=== PATIENT | male | born 1955 | race Caucasian/White ===

== ENCOUNTER 2017-08-25 12:05 | Inpatient (IN) | payer OTHER ==
[~2017-08-25] VITALS: Ht 190.5 cm; Wt 163.3 kg
[~2017-08-25 12:05] MED LIST: ASPIRIN EC81 MG PO; BETIMOL5 M1 OS; COSOPT EYE DROPS5 ML OD; CRESTOR10 MG PO; DICLOFENAC SODI75 MG PO; FAMOTIDINE20 MG PO; FLOMAX0.4 MG PO; IBUPROFEN600 MG PO; LEVAQUIN500 MG PO; LIPITOR10 MG PO; LISINOPRIL-HCT1 EAC2 PO; METFORMIN HCL500 MG PO; METOPROLOL TART25 MG PO; MOBIC7.5 MG PO; NITROGLYCERIN0.4 MG SL; NORCO 10-325 T1 EACH PO; NORCO 7.5-3251 EACH PO; PERCOCET 10-321 EACH PO; PERCOCET 5-3251 EACH PO; PLAVIX75 MG PO; ULTRAM50 MG PO; XANAX0.5 MG PO
--- NOTE | 2017-09-07 13:25 | OR ---
[facility] [address] [place], [place] [address] Signed DATE OF OPERATION: 09/06/2017 SURGEON: Дмитрий Adame MD PREOPERATIVE DIAGNOSIS: End-stage osteoarthritis, left knee. POSTOPERATIVE DIAGNOSIS: End-stage osteoarthritis, left knee. PROCEDURE: Left total knee arthroplasty. ANESTHESIA: Spinal with sedation. SPECIMENS AND COMPLICATIONS: There were no specimens or complications. TOURNIQUET TIME: 90 minutes. IMPLANTS: Attune size 8 PS femur, size 8 tibial tray with a 6 mm poly insert and a 41 mm all-poly patella. WHAT WAS DONE: The patient was taken to the operating room. After anesthesia was induced, the patient was sedated. Left lower extremity was positioned, prepped, and draped in a routine sterile fashion. The leg was exsanguinated with an Esmarch bandage. Pneumatic tourniquet was inflated to 300 mmHg. A straight anterior approach was made to the knee, centered over the patella. Skin was divided sharply. Subcutaneous tissue was bluntly spread. A small medial flap was created and an anteromedial arthrotomy performed. The patella was turned on edge and about 11 mm were trimmed off the posterior aspect of the patella and drill holes were made for 41 mm all-poly patella. We then trialed the 41 mm patella and finally we had reconstituted the preresection height and had a good alignment and position. The trial was removed. The patella was slid into the lateral recess and the knee was gently flexed. The eLearning Connections navigation system was then affixed to the distal femur and following the computer prompts, the distal femur was digitized. We then resected the distal femur in about 3 degrees of flexion, neutral varus/valgus, removing Electronically Signed By: ДМИТРИЙ ADAME MD 09/07/17 1325 PATIENT NAME: MÓNICA LEIJA OPERATIVE REPORT DATE OF : 57 PHYSICIAN: ДМИТРИЙ ADAME MD REPORT #: [id number] REPORT IS CONFIDENTIAL AND NOT TO BE RELEASED WITHOUT AUTHORIZATION [facility] [address] [place], [place] [address] Signed about 11 mm off the higher lateral side. After completing the femoral resection, the wafers were removed. We then transitioned the eLearning Connections navigation system of the proximal tibia. Again, after securing it to the tibia and following the computer props, we resected the proximal tibia at 5 mm off the medial side in neutral varus/valgus and 3 degrees of posterior slope per the Attune surgical protocol. The tibial wafer was then removed along with remnants of the medial lateral meniscus, ACL, and PCL. We then placed the femoral sizing jig on the distal femur. The femur sized to a size 8. The size 8, 4-in-1 cutting block was then placed on the distal femur and anterior, posterior, and chamfer cuts were made. Bony debris was removed and the notch cutting block was placed and centered on the distal femur. The notch was then cut out and the size 8 trial inserted. Drill holes were made for the lugs. We then placed a size 8 tibial tray on the proximal tibia and had good coverage without overlap. A 5 mm poly trial was placed. The knee was reduced and cycled. We had good alignment, good position, and excellent stability. The rotational alignment of the tibial tray was marked after a number of cycles and we then removed the trials. The tibia was then prepared in a standard fashion using the broach and the reamer. We then removed the tibial tray. Knee was copiously irrigated and meticulously dried. Double batch of antibiotic cement was mixed and the knee was then cemented, cementing the tibia then the femur and placing the trial tibial tray. At this point, the knee was placed in a full extension while the cement cured. We then cemented the patella in place as well. Leaving the knee in full extension and the patella clamp until the cement had cured, we then removed the patellar clamp and cycled the knee. Marginal cementophytes were sought and removed. We took out the trial, placed the 6 mm trial and again we were happy we still had full extension with excellent stability in flexion, extension, and the mid range. The knee was, therefore, copiously irrigated. We removed the trial, inserted the real poly and impacted it into the tray. We then inspected the interface. We indeed had secure poly capture. The wound was then copiously irrigated 1 more time and then closed in a standard fashion. Sterile dressing was applied. The patient was awakened to the recovery room where he arrived in stable condition. Counts were correct and antibiotic protocols have been followed. Дмитрий Adame MD WFB/MODL /[id number] Electronically Signed By: ДМИТРИЙ ADAME MD 09/07/17 1325 PATIENT NAME: MÓNICA LEIJA OPERATIVE REPORT DATE OF : 57 PHYSICIAN: ДМИТРИЙ ADAME MD REPORT #: [id number] REPORT IS CONFIDENTIAL AND NOT TO BE RELEASED WITHOUT AUTHORIZATION [facility] [address] [facility] [place], [place] [address] Signed Electronically Signed By: ДМИТРИЙ ADAME MD 09/07/17 1325 PATIENT NAME: MÓNICA LEIJA LOLA OPERATIVE REPORT DATE OF : 57 PHYSICIAN: ДМИТРИЙ ADAME MD REPORT #: [id number] REPORT IS CONFIDENTIAL AND NOT TO BE RELEASED WITHOUT AUTHORIZATION
[2017-09-10] MEDS ORDERED: MORPHINE SULFAT15 M1 PO (09:10)
[2017-09-10] MEDS ORDERED: XARELTO10 MG PO (09:11)
[2017-09-10] MEDS ORDERED: OXYCODONE HCL10 MG PO (09:12)
[2017-09-10] MEDS ORDERED: ACETAMINOPHEN650 M1 PO (09:14)
--- NOTE | 2017-09-15 07:07 | DS ---
[facility] [address] [facility] [place], [place] [address] Signed ADMISSION DATE: 09/06/2017 DISCHARGE DATE: 09/10/2017 FINAL DIAGNOSIS AT THE TIME OF DISCHARGE: End-stage osteoarthritis, left knee. PROCEDURE: Left total knee arthroplasty. ATTENDING SURGEON: Mango Adame MD ONLINE CONTENT DEVELOPER: Dr. Camejo. HISTORY OF PRESENT ILLNESS: Claimant has a long history of end-stage osteoarthritis involving the left knee and it reached to a point where he no longer got any symptomatic relief from conservative management. He therefore elected for a total knee replacement on the left. HOSPITAL COURSE: The patient was admitted to a day surgery on the where was taken to the operating room and underwent an uneventful attune posterior stabilized total knee on the left hip. Postoperatively, he has done well. He did have a transient temperature the first 2 evenings, but that has since passed with increased mobilization. He has met all of his physical therapy goals and is currently comfortable with going home and transition to outpatient therapy. He is being discharged home alternating oral morphine 15 mg every 3 hours and oxycodone 10 mg every 4 hours for pain relief. He has been put on Xarelto 10 mg 1 once a day for DVT prophylaxis and will continue that for the next month. His incision has been clean and dry. His laboratory parameters have been nominal. PLAN: To discharge him home today for outpatient therapy and have him follow up in 4 weeks. Electronically Signed By: MANGO ADAME MD 09/15/17 0707 PATIENT NAME: MÓNICA LEIJA DISCHARGE SUMMARY DATE OF : 57 PHYSICIAN: MANGO ADAME MD REPORT #: [id number] REPORT IS CONFIDENTIAL AND NOT TO BE RELEASED WITHOUT AUTHORIZATION [address] [place], [place] [address] Signed Mango Adame MD WFJoe/TOÑOL /[id number] Electronically Signed By: MANGO ADAME MD 09/15/17 0707 PATIENT NAME: MÓNICA LEIJA DISCHARGE SUMMARY DATE OF : 57 PHYSICIAN: MANGO ADAME MD REPORT #: [id number] REPORT IS CONFIDENTIAL AND NOT TO BE RELEASED WITHOUT AUTHORIZATION
== END 2017-09-10 09:45 | disposition home or self-care (01) | DRG 470 ==
LOC: DSVR 09-06 06:50 → MS 09-06 09:45
PROVIDERS: ADMIT Orthopaedic Surgery
PROC: 0SRD069 Replacement of Left Knee Joint with Oxidized Zirconium on Polyethylene Synthetic Substitute, Cemented, Open Approach (ICD-10-PCS; principal; 2017-09-06 09:45)
DX: M17.12 Unilateral primary osteoarthritis, left knee (principal); I25.10 Atherosclerotic heart disease of native coronary artery without angina pectoris; I10 Essential (primary) hypertension; R33.9 Retention of urine, unspecified; H54.40 Blindness, one eye, unspecified eye; G47.33 Obstructive sleep apnea (adult) (pediatric); E11.9 Type 2 diabetes mellitus without complications; Z79.84 Long term (current) use of oral hypoglycemic drugs; E66.9 Obesity, unspecified; J44.9 Chronic obstructive pulmonary disease, unspecified; E78.5 Hyperlipidemia, unspecified
CPT/HCPCS: 01402; 36415; 73560; 73721; 85025; 94762; 97110; 97116; 97162; C1713; C1776; J0690; J1885; J2250; J2274; J2405; J2550; J2704; J3010; J7120

== ENCOUNTER → 2018-02-09 | Emergency (ER) | payer OTHER ==
[~2018-02-09] VITALS: Ht 190.5 cm; Wt 163.3 kg
[~2018-02-09] MED LIST changes: +ACETAMINOPHEN650 M1 PO; +ASPIRIN325 MG PO; +MORPHINE SULFAT15 M1 PO; +OXYCODONE HCL10 MG PO; +XARELTO10 MG PO
--- NOTE | 2018-02-09 21:12 | EKG ---
[facility] [address] [place], [place] [address] Signed Sinus bradycardia Otherwise normal ECG When compared with ECG of 30-AUG-2017 09:16, No significant change was found Confirmed by KAREN LANGFORD MD ([id number]) on 02/09/2018 9:11:57 PM Electronically Signed By: KAREN LANGFORD MD 02/09/182111 PATIENT NAME: MÓNICA LEIJA LOLA Electrocardiogram DATE OF : 57 PHYSICIAN: KAREN LANGFORD MD REPORT #: [id number] REPORT IS CONFIDENTIAL AND NOT TO BE RELEASED WITHOUT AUTHORIZATION
== END ==
LOC: ED 10:49
DX: R53.83 Other fatigue (principal); I25.2 Old myocardial infarction; I11.0 Hypertensive heart disease with heart failure; I50.9 Heart failure, unspecified; Z79.899 Other long term (current) drug therapy; Z79.84 Long term (current) use of oral hypoglycemic drugs
CPT/HCPCS: 80053; 84484; 85025; 93005; 93010; 99284

== ENCOUNTER 2018-09-22 06:55 | Day surgery (SDC) | payer OTHER ==
[~2018-09-22] VITALS: Ht 190.5 cm; Wt 163.3 kg
--- NOTE | 2018-09-22 12:18 | NUR ---
09/22/18 1218 Nunu Han 1205- PT ARRIVES TO PACU FROM OR ON 10 L 02 VIA MASK WITH SATS 98%. RESP RATE EVEN AND UNLABORED. PT REACTIVE TO VERBAL STIMULUS AND RESPONDS APPROPRIATELY TO COMMANDS. 7 SURGICAL SITES WITH SMALL AMOUNT OF DRAINAGE ON STERI STRIPS. GAUZE AND BACITRACIN ON CHEST FROM SKIN TAG REMOVAL. SCDS ON AND APPLIED. 1208- PT TITRATED TO 6 L VIA MASK WITH SATS 97%. PT DENIES PAIN/NAUSEA. BEDSIDE GLUCOSE 229. PT GIVEN PILLOW TO SPLINT ABDOMEN.
[2018-09-22] MEDS ORDERED: PERCOCET 7.5-31 EACH PO (12:32)
[2018-09-22] MEDS ORDERED: ACETAMINOP80 MG/0.8 PO (12:33)
[2018-09-22] MEDS ORDERED: TYLENOL325 MG PO (12:33)
--- NOTE | 2018-09-22 13:05 | NUR ---
1240 PT TO ROOM 4 ON BED, PT AWAKE AND TALKING TO RN. PT REPORTS PAIN 5/10 AND "GETTING WORSE." PT DENIES NAUSEA. LARGE BANDAGE ON UPPER CHEST AND UNDER ARMS DUE TO SKIN TAG REMOVED (OVER 80 PER JEWELRY BENCH MOLDER). 7 LAP SITE TO ABD WITH SMALL AMOUNT OF DRAINAGE. CBG 229 IN PACU. AT BEDSIDE. WARM AIR ON PT PER REQUST. 1300 PT EATING PUDDING AND BROTH. PAIN MEDICATION GIVEN PER EMAR. NO OTER PROBLEMS AT THIS TIME.
--- NOTE | 2018-09-22 14:31 | NUR ---
1420 PT DC IN WC WITH . PT DRANK TWO CUPS OF WATER AND ATE JELLO, PUDDING AND BROTH. PT GOT UP TO VOID, STEADY ON FEET. PT VERBALIZED WANTING TO GO HOME AND ALL QUESTIONS ANSWERED.
--- NOTE | 2018-09-22 16:17 | OR ---
[facility] [address] [place], [place] [address] Signed DATE OF OPERATION: SURGEON: Gerry Benjamin MD PREOPERATIVE DIAGNOSES: 1. Chronic cholecystitis, possible noncalcified gallstones. 2. Morbid obesity (390 pounds, 6 feet 3 inches tall). 3. Multiple symptomatic skin tags, neck, left and right axilla, and chest wall. POSTOPERATIVE DIAGNOSES: 1. Chronic acalculous cholecystitis. 2. Narrowed ampulla at distal common duct, possible sludge debris. 3. Multiple skin tags (left axilla 20 skin tags, left neck 28 tags, right neck 20 skin tags, right axilla and chest 25 tags). 4. Hepatic steatosis, possible low-grade inflammation. PROCEDURES: 1. Laparoscopic cholecystectomy with intraoperative cholangiogram, prolonged, complicated, difficult. 2. Laparoscopic common duct exploration with Taut catheter system with intraoperative fluoroscopy. 3. Laparoscopic liver biopsy. 4. Excision of multiple skin tags. a. Left axilla, excision of 20 skin tags. b. Left neck, 28 skin tags. c. Right neck, 20 skin tags. d. Right axilla and chest wall, 25 tags. ANESTHESIA: General endotracheal, Megan Chaitanya, TEACHERS ASSISTANT and local 20 mL of 0.25% Marcaine with epinephrine. INDICATION: This 63-year-old white man is a patient of Dr. Sheth. He has had recurrent bouts of right upper abdominal pain extending to the subscapular area on the right side. Gallbladder imaging showed possible non-calcifying adherent gallstones in the gallbladder wall. The patient is quite morbidly obese at least 360 pounds as high as 390 pounds and 6 feet 3 inches tall with a BMI of at least 45. He has a distant history of myocardial infarction and coronary stenting in that presentation to [place] on 09/05/2018, was on Plavix on a daily basis. Electronically Signed By: GERRY BENJAMIN MD 09/22/18 0861 PATIENT NAME: MÓNICA LEIJA OPERATIVE REPORT DATE OF : 57 REPORT #: [id number] PHYSICIAN: GERRY BENJAMIN MD PCP: ESTEBAN SHETH MD REPORT IS CONFIDENTIAL AND NOT TO BE RELEASED WITHOUT AUTHORIZATION [facility] [address] [place], [place] [address] Signed His symptoms are quite reliable following eating. His liver enzymes are normal. Amylase is normal. He was admitted at this time to undergo laparoscopic cholecystectomy and other indicated procedures. He understands the risks of bleeding, infection, bile duct injury, need for open procedure, particularly given his significant obesity. Additionally, he has symptomatic skin tags that are quite numerous in both left and right axilla, the right chest, and left and right neck. Excision while under anesthesia is requested by the patient. Those will be excised as well. FINDINGS: Significant abdominal obesity was noted. Incidental note was made of a small umbilical hernia. No herniated viscus was noted, only a simple depression. The liver was quite markedly fatty infiltrated with mild low-grade inflammation and on that basis, liver biopsy obtained. Gallbladder itself was chronically inflamed. The gallbladder once excised showed no sign of actual stones, but cholesterolosis and adherent debris to the wall. There was no sign of neoplasm. Cholangiogram demonstrated a somewhat dilated biliary tree with no passage of contrast through the ampulla. On that basis, a laparoscopic transcystic duct exploration was undertaken allowing for completion angiogram to show free flow of contrast through the biliary tree. As regard the multiple skin tags, none of them appeared worrisome for malignancy in any way, but all were quite symptomatic and no doubt related to his obesity. DESCRIPTION OF PROCEDURE: The patient was brought to the operating room, given a general endotracheal anesthetic with all due care. As he has had an uvulopalatoplasty in the past, intubation was not excessively challenging apparently. A wedge was maintained during the course of operation to elevate his back somewhat. The abdomen was prepared with chlorhexidine solution and draped sterilely. Sequential compression device stockings used and heparin subcutaneously administered. Given his significant abdominal pannus, an incision was made cephalad to the umbilicus. Dissection carried through the subcutaneous tissue, which was rather thick identifying the midline fascia. Midline fascia was incised after pulling it up with hemostats and the abdomen ultimately entered. Using a balloon type Sg cannula, pneumoperitoneum was achieved to a level of 14 mmHg of carbon dioxide gas. Intraabdominal inspection showed the gallbladder to be obscured by a very thick and fatty omentum. The liver was markedly enlarged with fatty infiltration and chronic inflammatory change. There was no sign of isaac nodularity to suggest cirrhosis at this time, however. Three additional trocars were placed in usual configuration in the subxiphoid, right midclavicular, and right anterior axillary line. The gallbladder was elevated cephalad, which was peeled half of it. Gallbladder was chronically inflamed. A small rent was Electronically Signed By: GERRY BENJAMIN MD 09/22/18 1617 PATIENT NAME: MÓNICA LEIJA OPERATIVE REPORT DATE OF : 57 REPORT #: [id number] PHYSICIAN: GERRY BENJAMIN MD PCP: ESTEBAN SHETH MD REPORT IS CONFIDENTIAL AND NOT TO BE RELEASED WITHOUT AUTHORIZATION [facility] [address] [place], [place] [address] Signed made in the gallbladder allowing for egress of clear green bile. This defect was secured with an endo-loop. Elevation of the gallbladder was undertaken as much as possible despite the heavy liver. An additional 5 mm trocar was placed to allow for placement of a fan retractor. This allowed for good visualization of the infundibulum. Using meticulous care and blunt and electrocautery dissection, the triangle of Calot was dissected free identifying cystic artery and cystic duct itself. A clip was applied across gallbladder cystic duct junction and clips applied across the cystic artery as well. A transverse choledochotomy in the cystic duct showed egress of clear bile. Using the Hubbard type cholangiocatheter, intraoperative cholangiography was undertaken. With surgeon directed fluoroscopy, free flow of contrast was noted in the biliary tree, which was somewhat dilated. There was no contrast flowing past the ampulla. It is unclear if there was debris or stone in the area. There was no obvious meniscus, however. Plans were made for laparoscopic common duct exploration. A flexible tipped wire from the Taut catheter system was insinuated into the common duct, but was incompletely passing and on that basis, the Taut 5 mm black trocar was placed in alignment with the cystic duct. At that point, the wire as well as the Taut balloon infusion common duct catheter passed over the wire and insinuated into the cystic duct without problem. Fluoroscopic control was used to ascertain the position of the catheter and wire. On fluoroscopic control, the wire was removed and manipulation of the balloon catheter alone was undertaken. It is unclear if markings of the device were across the ampulla entirely to allow for dilation and on that basis, catheter was withdrawn and intraoperative cholangiography undertaken through the operating lumen of the catheter. This showed free flow of contrast in the biliary tree and prompt emptying into the stomach as well as the duodenum. The catheter was withdrawn a bit. Additional views taken. There appeared to be no further impediment to flow through the bile duct. Possibly, there was some biliary debris or sludge that had caused obstruction of the duct. Catheter was then removed and an Hubbard type cholangiocatheter placed and conventional cholangiography undertaken showing free flow of contrast in the biliary tree with prompt emptying into the duodenum. The retrograde pancreatogram was noted as well. Catheter was removed and the cystic duct was triply clipped and divided. Gallbladder was dissected free in a retrograde fashion using electrocautery. Gallbladder was placed in an endobag and extracted through the infraumbilical port site without problem, opened on the back table, and found to have primarily adherent cholesterol debris to the surface. There was no sign of neoplasm or free flowing stones. Irrigation was undertaken in subhepatic space. There was no sign of bile leak, bleeding, or other problems. Small amount of Kalin was applied in the area to assure hemostasis. Irrigation fluid was suctioned free. Evaluation of the liver considering its large size and fatty infiltration, liver biopsy to assess the level of Electronically Signed By: GERRY BENJAMIN MD 09/22/18 1617 PATIENT NAME: MÓNICA LEIJA OPERATIVE REPORT DATE OF : 57 REPORT #: [id number] PHYSICIAN: GERRY BENJAMIN MD PCP: ESTEBAN SHETH MD REPORT IS CONFIDENTIAL AND NOT TO BE RELEASED WITHOUT AUTHORIZATION [facility] [address] [place] [id number] Signed steatohepatitis was deemed appropriate. Percutaneous passage of a biopsy gun device 14-gauge in size was undertaken and a biopsy was taken on the medial side in the left lobe of the liver. Only a scant amount of bleeding was noted and was used to secure with cautery. The trocars were then removed under direct visualization. It was noted that there was a depression at the site of the umbilicus consistent with a hernia at the umbilicus, but no incarcerated viscus and not a particularly deep hernia. It was left in situ. Special care was taken to approximate the fascia at the supraumbilical trocar site. This included interrupted 0 Vicryl suture as well as a running 0 PDS suture. All wounds were copiously irrigated and injected with 0.25% Marcaine with epinephrine. The skin was then closed with interrupted 3-0 Vicryl and Steri-Strips were applied. The operation was prolonged, complicated, and difficult on the basis of his significant obesity and anatomic factors and so forth. Plans were then made for a skin tag excision. The left and right axilla and neck areas as well as the right inframammary area were prepared with Betadine solution. Excision of skin tag was undertaken sharply. Numbers of tags excised were noted as above. Bacitracin was applied to the raw sites and sterile gauze applied as well. The patient was ultimately extubated and transferred to recovery in good condition having suffered no complications. Sponge, needle, and counts reported as correct x3. MD FEDE Weston/SAURABH /[id number] cc: Esteban Sheth MD Copies: ESTEBAN SHETH MD ~ Electronically Signed By: GERRY BENJAMIN MD 09/22/18 1617 PATIENT NAME: MÓNICA LEIJA OPERATIVE REPORT DATE OF : 57 REPORT #: [id number] PHYSICIAN: GERRY BENJAMIN MD PCP: ESTEBAN SHETH MD REPORT IS CONFIDENTIAL AND NOT TO BE RELEASED WITHOUT AUTHORIZATION
== END 2018-09-22 14:20 | disposition home or self-care (01) ==
LOC: DS 06:55
PROVIDERS: Surgery
PROC: 0FJB4ZZ Inspection of Hepatobiliary Duct, Percutaneous Endoscopic Approach (ICD-10-PCS; 2018-09-22)
PROC: 0FB04ZX Excision of Liver, Percutaneous Endoscopic Approach, Diagnostic (ICD-10-PCS; 2018-09-22)
PROC: 0HB4XZZ Excision of Neck Skin, External Approach (ICD-10-PCS; 2018-09-22)
PROC: 0HB5XZZ Excision of Chest Skin, External Approach (ICD-10-PCS; 2018-09-22)
PROC: 0FT44ZZ Resection of Gallbladder, Percutaneous Endoscopic Approach (ICD-10-PCS; principal; 2018-09-22 08:45)
PROC: BF13YZZ Fluoroscopy of Gallbladder and Bile Ducts using Other Contrast (ICD-10-PCS; 2018-09-22 08:45)
DX: K81.1 Chronic cholecystitis (principal); D23.5 Other benign neoplasm of skin of trunk; D23.4 Other benign neoplasm of skin of scalp and neck; K76.0 Fatty (change of) liver, not elsewhere classified; E66.01 Morbid (severe) obesity due to excess calories; I25.2 Old myocardial infarction; E11.39 Type 2 diabetes mellitus with other diabetic ophthalmic complication; H40.9 Unspecified glaucoma; I10 Essential (primary) hypertension; Z79.02 Long term (current) use of antithrombotics/antiplatelets; Z79.899 Other long term (current) drug therapy; Z95.5 Presence of coronary angioplasty implant and graft; Z68.42 Body mass index [BMI] 45.0-49.9, adult
CPT/HCPCS: 00790; 74300; C1894; J0131; J0330; J0690; J0735; J1100; J1644; J1885; J2250; J2405; J2704; J3475; J7120; Q9967

== ENCOUNTER 2020-07-30 15:49 | Emergency (ER) | payer OTHER ==
[~2020-07-30] VITALS: Ht 190.5 cm; Wt 148.8 kg
[~2020-07-30 15:49] MED LIST changes: +ACETAMINOP80 MG/0.8 PO; +PERCOCET 7.5-31 EACH PO; +TYLENOL325 MG PO
--- NOTE | 2020-07-30 18:17 | EKG ---
[facility] [address] [facility] [place] [address] Signed Sinus bradycardia Otherwise normal ECG When compared with ECG of 20-SEP-2018 13:42, Nonspecific T wave abnormality has replaced inverted T waves in Inferior leads Confirmed by ANITA POWELL DO ([id number]) on 07/30/2020 6:17:36 PM Electronically Signed By: ANITA POWELL DO 07/30/20 1817 PATIENT NAME: MÓNICA LEIJA Electrocardiogram DATE OF : 57 PHYSICIAN: ANITA POWELL DO REPORT #: [id number] REPORT IS CONFIDENTIAL AND NOT TO BE RELEASED WITHOUT AUTHORIZATION
--- NOTE | 2020-07-30 18:18 | EKG ---
[facility] [address] [facility] [place], [place] [address] Signed Sinus bradycardia Otherwise normal ECG When compared with ECG of 30-JUL-2020 15:54, (Unconfirmed) No significant change was found Confirmed by ANITA POWELL DO ([id number]) on 07/30/2020 6:17:53 PM Electronically Signed By: ANITA POWELL DO 07/30/20 1818 PATIENT NAME: MÓNICA LEIJA Electrocardiogram DATE OF : 57 PHYSICIAN: ANITA POWELL DO REPORT #: [id number] REPORT IS CONFIDENTIAL AND NOT TO BE RELEASED WITHOUT AUTHORIZATION
[2020-07-30] MEDS ORDERED: NITROGLYCERIN0.4 MG SL (19:38)
[2020-07-30] MEDS ORDERED: ISOSORBIDE MONO30 MG PO (19:38)
== END 2020-07-30 19:50 | disposition home or self-care (01) ==
LOC: ED 15:49
DX: R07.2 Precordial pain (principal); I25.2 Old myocardial infarction; G47.30 Sleep apnea, unspecified; I11.0 Hypertensive heart disease with heart failure; I50.9 Heart failure, unspecified; Z87.891 Personal history of nicotine dependence; Z79.84 Long term (current) use of oral hypoglycemic drugs; Z79.899 Other long term (current) drug therapy
CPT/HCPCS: 71045; 80053; 83735; 84484; 85025; 93005; 93010; 99285-25

== ENCOUNTER 2023-05-15 20:33 | Emergency (ER) | payer MEDICARE, OTHER ==
[~2023-05-15] VITALS: Ht 190.5 cm; Wt 159.9 kg
--- OUTSIDE RECORDS SUMMARY | ~2023-05-15 | XMS | Continuity of Care Document ---
Demographics + + + | Address | [address] | | | [place] [address] | + + + | Preferred Language | Unknown | + + + | Marital Status | | + + + | Sabianist Affiliation | Unknown | + + + | Race | White | + + + | Ethnic Group | Unknown | + + + Author + + + | Author | Center | + + + | Organization | Center | + + + | Address | [address] | | | [place] [address] | + + + | Phone | | + + + Care Team Providers + + + + | Care Top Spotter Name | Role | Phone | + + + + Unavailable | Unavailable | + + + + Allergies and Intolerances + + + + + + | date | description | facility | reaction | severity | + + + + + + | (no date) | No Known | [facility] | (no reaction) | (no severity) | | | Allergies | | | | + + + + + + Encounters No information. Functional Status No information. Immunizations No information. Medications No information. Problems + + + + | date | description | facility | + + + + | 2023-01-28 07:50 | STRAIN OF MUSC/TEND THE | [facility] | | | ROTATOR CUFF OF LEFT | | | | SHOULDER, SUBS | | + + + + Procedures No information. Results/Labs No information. Social History No information. Vital Signs No information."
--- OUTSIDE RECORDS SUMMARY | ~2023-05-15 | XMS | Continuity of Care Document ---
Demographics + + + | Address | [address] | | | [place] [address] | + + + | Preferred Language | Unknown | + + + | Marital Status | | + + + | Christian Affiliation | Unknown | + + + | Race | White | + + + | Ethnic Group | Unknown | + + + Author + + + | Author | [facility] | + + + | Organization | [facility] | + + + | Address | [address] | | | [place] [address] | + + + | Phone | | + + + Care Team Providers + + + + | Care Roofing Sales Representative Name | Role | Phone | + [...]
[~2023-05-15 20:33] MED LIST changes: +ISOSORBIDE MONO30 MG PO
--- OUTSIDE RECORDS SUMMARY | 2023-05-15 20:35 | XMS ---
PreManage Notification: MÓNICA LEIJA Security Grounds Keeper Events No recent Security Events currently on file CRITERIA MET - [facility] There are no care providers on record at this time. Kiarra has no Care Guidelines for this patient. Sudha VISIT COUNT (12 MO.) 1 JOJO Quinteros TOTAL 1 NOTE: Visits indicate total known visits. ED/UCC VISIT TRACKING (12 MO.) 05/15/2023 20:33 JOJO Min OR TYPE: Emergency COMPLAINT: - POSS STROKE INPATIENT VISIT TRACKING (12 MO.) No inpatient visits to display in this time frame [email or web address]
[2023-05-15 20:45] LABS: BASOPHILS 1.1 % (0-2); EOSINOPHILS 2.3 % (0-6); HEMATOCRIT 47.2 % (35.0-50.0); HEMOGLOBIN 15.6 g/dL (12.0-18.0); LYMPHOCYTES 25.7 % (24-44); MCHC 33.2 g/dl (30-36); MCV 87.5 fl (81-99); MONOCYTES 5.8 % (0-12); NEUTROPHILS 65.1 % (39-80); PLATELET COUNT 166 K/uL (140-440); RBC 5.39 M/ul (4.3-5.7); RDW 14.8 (10.5-15.0)
[2023-05-15 20:55] LABS: INR 1.04 (0.80-1.30); PROTIME 13.2 Sec (11.2-14.2)
[2023-05-15 20:57] LABS: PARTIAL THROMBOPLASTIN TIME 30.7 Sec (22.9-41.3)
[2023-05-15 21:02] LABS: ALBUMIN 3.8 g/dL (3.4-5.0); ALBUMIN/GLOBULIN RATIO 1.03 (1.1-2.4); BILIRUBIN, TOTAL 0.5 ng/dL (0.2-1.0); BUN/CREATININE RATIO 20.19 (6.0-28.6); CALCIUM 9.4 mg/dL (8.5-10.1); CREATININE, SERUM 1.04 mg/dL (0.70-1.30); PROTEIN, TOTAL 7.5 g/dL (6.4-8.2)
[2023-05-15 21:36] LABS: AMPHETAMINES, UR NEGATIVE (NEGATIVE); BARBITURATES, UR NEGATIVE (NEGATIVE); BENZODIAZEPINES, UR POSITIVE (NEGATIVE); BUPRENORPHINE,UR NEGATIVE (NEGATIVE); COCAINE, UR NEGATIVE (NEGATIVE); MARIJUANA (THC), UR NEGATIVE (NEGATIVE); MDMA, UR NEGATIVE (NEGATIVE); METHADONE, UR NEGATIVE (NEGATIVE); METHAMPHETAMINE, UR NEGATIVE (NEGATIVE); OPIATES, UR NEGATIVE (NEGATIVE); OXYCODONE, UR NEGATIVE (NEGATIVE); PHENCYCLIDINE, UR NEGATIVE (NEGATIVE); TRICYCLIC ANTIDEPRESSANT, UR NEGATIVE (NEGATIVE)
[2023-05-15 21:51] LABS: BASE EXCESS, BLOOD GAS 1.4 mmol/L (-2-2); HCO3, BLOOD GAS 31.2 mmol/L (22-26); O2 SATURATION, BLOOD GAS 95.5 % (95.0-100.0); PCO2, BLOOD GAS 70.9 mmHg (35-45); PH, BLOOD GAS 7.25 (7.35-7.45); TOTAL CO2, BLOOD GAS 33.4
[2023-05-15 22:53] LABS: INFLUENZA B NAA NEGATIVE (NEGATIVE); RESPIRATORY SYNCYTIAL VIR NAA NEGATIVE (NEGATIVE)
[2023-05-16 01:03] VITALS: BP 128/74
--- NOTE | 2023-05-16 06:00 | EKG ---
[facility] [address] [facility] [place] [address] Signed Sinus tachycardia Possible Left atrial enlargement Rightward axis ST \T\ T wave abnormality, consider inferior ischemia Abnormal ECG When compared with ECG of 30-JUL-2020 17:15, Vent. rate has increased BY [address] now depressed in Inferior leads Non-specific change in ST segment in Lateral leads T wave inversion now evident in Inferior leads Confirmed by JEFFREY MATTHEWS MD ([id number]) on 05/16/2023 5:59:55 AM Electronically Signed By: JEFFREY MATTHEWS 05/16/23 0600 PATIENT NAME: MÓNICA LEIJA Electrocardiogram DATE OF : 57 PHYSICIAN: JEFFREY MATTHEWS REPORT #: [id number] REPORT IS CONFIDENTIAL AND NOT TO BE RELEASED WITHOUT AUTHORIZATION
== END 2023-05-16 01:00 | disposition short-term general hospital (02) ==
LOC: ED 20:33
PROVIDERS: Family Medicine
DX: I63.9 Cerebral infarction, unspecified (principal); R29.810 Facial weakness; R29.715 NIHSS score 15; I11.0 Hypertensive heart disease with heart failure; I50.9 Heart failure, unspecified; E66.9 Obesity, unspecified; E11.9 Type 2 diabetes mellitus without complications; I25.2 Old myocardial infarction; H54.62 Unqualified visual loss, left eye, normal vision right eye; Z79.899 Other long term (current) drug therapy; Z79.84 Long term (current) use of oral hypoglycemic drugs; Z20.822 Contact with and (suspected) exposure to COVID-19
CPT/HCPCS: 36415; 36556; 36600; 51702; 70450; 70496; 70498; 71045; 71250; 80053; 82803; 84484; 85025; 85610; 85730; 87502; 93005; 93010; 94002; 99285-25; C9803; J1940; J2250; J2405; J2543; J2704; J3101; Q3014; U0002

== ENCOUNTER 2024-10-01 09:57 | Emergency (ER) | payer MEDICARE, OTHER ==
[~2024-10-01] VITALS: Ht 190.5 cm; Wt 140.6 kg
[~2024-10-01 09:57] MED LIST changes: +ALPRAZOLAM ER0.5 MG PO; +AMBIEN5 MG PO; +ATIVAN0.5 MG PO; +B-121000 MC2 PO; +BRIMONIDINE TART5 ML OPTH; +BUPROPION HCL100 MG PO; +EZETIMIBE10 MG PO; +JARDIANCE25 MG PO; +K-TAB ER20 MEQ PO; +LISINOPRIL10 MG PO; +MELOXICAM15 MG PO; +METFORMIN HCL500 M2 PO; +OMEPRAZOLE20 MG PO; +OZEMPIC1 MG/0.71 SUB-Q; +PAXLOVID 150-11 EAC1 PO; +ROSUVASTATIN CA40 MG PO; +SILDENAFIL20 MG PO; +SULFAMETHOXAZO1 EAC1 PO; +TIMOLOL MALEATE5 M2 OP; +TORSEMIDE10 MG PO; +XALATAN2.5 ML OPTH; +ZOLOFT50 MG PO
[2024-10-01] MEDS ORDERED: TETRACAINE HCL 0.5% 4 ML BTL OU SCH (10:15)
[2024-10-01] MEDS ORDERED: FLUORESCEIN SOD 1 EA STRP OD ONE (11:30)
[2024-10-01] MEDS ORDERED: ERYTHROMYCIN1 GM OP (12:18)
[2024-10-01 12:27] VITALS: BP 120/90
== END 2024-10-01 12:28 | disposition home or self-care (01) ==
LOC: ED 09:57
DX: H57.13 Ocular pain, bilateral (principal); H54.62 Unqualified visual loss, left eye, normal vision right eye; I11.0 Hypertensive heart disease with heart failure; I50.9 Heart failure, unspecified; I25.2 Old myocardial infarction; G47.30 Sleep apnea, unspecified; E78.00 Pure hypercholesterolemia, unspecified; N40.0 Benign prostatic hyperplasia without lower urinary tract symptoms; Z86.73 Personal history of transient ischemic attack (TIA), and cerebral infarction without residual deficits; Z79.84 Long term (current) use of oral hypoglycemic drugs; Z79.85 Long-term (current) use of injectable non-insulin antidiabetic drugs; Z79.899 Other long term (current) drug therapy
CPT/HCPCS: 99283